=== PATIENT | male | born 1960 | race Caucasian/White ===

== ENCOUNTER 2024-02-27 22:20 | Emergency (ER) | payer SELFPAY ==
[2024-02-27 22:32] VITALS: BP 133/92; PULSE 70; TEMP 36.6; O2SAT 97; BMI 26.9
--- NOTE | 2024-02-27 23:57 | ED.GENADUL1 ---
HPI HPI - General Adult General Chief complaint: Neuro Symptoms/Deficit Stated complaint: CANT SLEEP Time Seen by Provider: 02/27/24 23:50 Source: patient Mode of arrival: walk-in Limitations: no limitations History of Present Illness HPI narrative: patient presents complaining of insomnia. States he has not been able to sleep for past week. Was seen at urgent care and advised to go to the ER. Denies history of mental health. Denies any new stressors. States he tried melatonin and NyQuil without success Related Data Home Medications ?Medication ?Instructions ?Recorded ?Confirmed No Known Home Medications 02/27/24 02/27/24 Allergies Allergy/AdvReac Type Severity Reaction Status Date / Time No Known Drug Allergies Allergy Verified 02/27/24 22:37 Opioid HPI Opioid Management Most Recent Opioid Data: No Data to Display Review of Systems ROS Status of ROS 10 or more systems reviewed and unremarkable except as noted in history and below Exam Constitutional Vital Signs, click to edit/add: Last Vital Signs Temp 98 F 02/27/24 22:32 Pulse 70 02/27/24 22:32 Resp 16 02/27/24 22:32 BP 133/92 H 02/27/24 22:32 Pulse Ox 97 02/27/24 22:32 O2 Del Method Room Air 02/27/24 22:32 Common normals: no apparent distress, average body habitus, oriented x3, no limitations, healthy appearing, alert and well nourished [facility] Common normals: normocephalic and head/scalp atraumatic Eye Common normals: EOMs intact bilaterally and conjunctivae normal Respiratory Common normals: normal respiratory effort, no retractions, no use of accessory muscles and clear to auscultation bilaterally Cardio Common normals: regular rate, regular rhythm, S1 normal heart sound and S2 normal heart sound Extremity Common normals: normal to inspection and full ROM Neuro Common normals: oriented x3, CN's II-XII intact bilaterally, moves all extremities and no focal motor deficits Psych Appearance: grossly normal Course Vital Signs Vital signs: Vital Signs Temperature 98 F 02/27/24 22:32 Pulse Rate 70 02/27/24 22:32 Respiratory Rate 16 02/27/24 22:32 Blood Pressure 133/92 H 02/27/24 22:32 Pulse Oximetry 97 02/27/24 22:32 Oxygen Delivery Method Room Air 02/27/24 22:32 Temperature 98 F 02/27/24 22:32 Pulse Rate 70 02/27/24 22:32 Respiratory Rate 16 02/27/24 22:32 Blood Pressure 133/92 H 02/27/24 22:32 Pulse Oximetry 97 02/27/24 22:32 Oxygen Delivery Method Room Air 02/27/24 22:32 Medical Decision Making MDM Narrative Medical decision making narrative: patient presents complaining of insomnia. Denies any new stressors. No other complaint. Discharge home and advised to try OTC benadryl . also prescribed short course of Ambien and advised to follow up with his doctor Discharge Plan Discharge Stand Alone Forms: Portal Instructions Chief Complaint: Neuro Symptoms/Deficit Clinical Impression: Insomnia Patient Disposition: Home, Self-Care Prescriptions / Home Meds: No Action No Known Home Medications Print Language: Citizen Of [place] Instructions: Insomnia (ED) Additional Instructions: use benadryl or ambien for sleep and followup with your doctor Referrals: Physician,Non-Staff, MD [Primary Care Provider] - 1 week
[2024-02-28] MEDS: DIPHENHYDRAMINE HCL 25 MG CAPSULE 50 MG PO (00:12)
[2024-02-28 00:17] VITALS: BP 120/82; PULSE 54; O2SAT 97
== END 2024-02-28 00:20 | disposition home or self-care (01) ==
PROVIDERS: Emergency Provider Internal Medicine
DX: G47.00 Insomnia, unspecified (principal)
CPT/HCPCS: 99283